=== PATIENT | male | born 1995 | race Hispanic/Latino ===

== ENCOUNTER 2022-01-22 18:19 | Emergency (ER) | payer OTHER ==
[2022-01-22] MEDS ORDERED: cefTRIAXone\\ROCEPHIN 500 MG VIAL ONE (18:58)
[2022-01-22] MEDS ORDERED: Azithromycin 250 MG TAB ONE (18:59)
[2022-01-22 19:10] LABS: #Eosinphils 0.2 10x3/uL (0.0-0.5); #Monocytes 0.6 10x3/uL (0.0-1.1); #Neutrophils 6.9 10x3/uL (1.5-8.4); %Basophils 0.2 % (0.0-2.0); %Eosinophils 2.9 % (0.0-6.0); %Lymphocytes 6.7 % (18.0-47.0); %Monocytes 7.4 % (0.0-10.0); %Neutrophils 82.1 % (40.0-75.0); Hemoglobin 15.9 g/dL (13.5-17.5); Mean Corpuscular HGB CONC 36.9 g/dL (32.0-36.0); Mean Corpuscular Hemoglobin 30.3 pg (27.0-33.0); Mean Corpuscular Volume 82.3 fl (81.2-95.1); Mean Platelet Volume 11.8 fl (7.4-10.4); Platelet Count 436 10x3/uL (150-450); RBC Distribution Width 14.4 % (11.5-14.5); Red Blood Cell (RBC) Count 5.24 10x6/uL (4.32-5.72); White Blood Cell (WBC) Count 8.4 10x3/uL (3.5-10.5)
[2022-01-22] MEDS ORDERED: Sterile Water 10 ML ONE (19:13)
[2022-01-22] MEDS ORDERED: Clotrimazole 1% Cream 15 GM TUBE TOP SCH (19:15)
[2022-01-23 00:15] LABS: SARS-CoV-2 PCR by NAA Not Detected (NotDetected)
== END 2022-01-22 20:35 ==
LOC: EEVIPCON 18:19 → CSHERS 18:19
DX: N48.1 Balanitis (principal); I10 Essential (primary) hypertension; Z20.822 Contact with and (suspected) exposure to COVID-19
CPT/HCPCS: 85025; 96372; 99283; J0696; U0003; U0005